=== PATIENT | female | born 1975 | race Caucasian/White ===

== ENCOUNTER 2016-09-17 00:40 | Emergency (ER) | payer OTHER ==
[~2016-09-17] VITALS: Ht 170.1 cm; Wt 108.9 kg
[~2016-09-17 00:40] MED LIST: CORTISPORIN 1%-10 M1 OT; DAYPRO600 M1 PO; VICODIN 500 MG-1 TAB PO; ZITHROMAX Z PA250 MG PO
[2016-09-17 00:49] VITALS: BP 140/98
[2016-09-17 01:15] LABS: BILIRUBIN NEGATIVE (NEGATIVE); BLOOD 1+ (NEGATIVE); CLARITY SL CLOUDY (CLEAR); COLOR YELLOW (YELLOW); GLUCOSE NEGATIVE (NEGATIVE); KETONE NEGATIVE (NEGATIVE); LEUKO ESTERASE NEGATIVE (NEGATIVE); NITRITE NEGATIVE (NEGATIVE); PH 5.5 (5.0-9.0); PROTEIN NEGATIVE (NEGATIVE); UROBILINOGEN 0.2 E.U./dl (0.2-1.0)
[2016-09-17 01:24] LABS: BACTERIA 2+; EPITHELIAL CELLS 15-20; URINE REFLEX COMMENT YES (NO)
[2016-09-17 01:43] LABS: HEMATOCRIT 41.5 % (37.0-47.0); HEMOGLOBIN 13.3 g/dl (12.0-16.0); MEAN CELL VOLUME 86.5 fl (81.0-99.0); MEAN CORPUSCULAR HGB 27.7 pg (27.0-31.0); MEAN PLATELET VOLUME 9.2 fl (9.6-12.3); PLATELET COUNT AUTOMATED 414 10*3/uL (130-400); RED CELL DISTRI WIDTH 15.3 % (0-14.5); WHITE BLOOD COUNT 14.4 10*3/uL (4.8-10.8)
[2016-09-17 02:00] LABS: ALBUMIN 3.5 gm/dl (3.1-4.5); ALKALINE PHOSPHATASE 109 U/L (45-117); BILIRUBIN, TOTAL 0.2 mg/dl (0.2-1.0); BUN 20 mg/dl (7-24); CARBON DIOXIDE 24 mmol/L (21-32); CHLORIDE 106 mmol/L (98-107); EST GLOM FILT AFRICAN AMERICAN > 60 ml/min; GLUCOSE 98 mg/dL (65-99); POTASSIUM 3.6 mmol/L (3.5-5.1); SGOT/AST 27 IU/L (3-35); SGPT/ALT 21 U/L (12-78); SODIUM 141 mmol/L (136-145); TOTAL PROTEIN 7.1 gm/dL (6.4-8.2)
[2016-09-17 02:01] LABS: ATYPICAL LYMPHS 1 % (0-0); BASOPHIL # 0.1 10*3/uL (0-0.1); BASOPHILS 1 % (0-1); EOSINOPHIL # 0.9 10*3/uL (0-0.4); EOSINOPHILS 6 % (1-4); LYMPHOCYTE # 4.6 10*3/uL (1.3-4.4); METAMYELOCYTES 3 % (0-0); MONOCYTE # 0.4 10*3/uL (0.1-1.0); NEUTROPHIL # 7.9 10*3/uL (2.3-7.9); NEUTROPHILS 55 % (47-73); TOTAL CELLS COUNTED 100 #CELLS
[2016-09-17 02:02] LABS: PLATELET SUFFICIENCY HIGH (NORMAL); POLYCHROMASIA SLIGHT
[2016-09-17] MEDS ORDERED: CIPRO500 MG PO (03:00)
[2016-09-17] MEDS ORDERED: HYDROCODONE BIT1 T11 PO (03:00)
[2016-09-18] MEDS ORDERED: 'PARAFON FORTE500 M1 PO (12:20)
[2016-09-18] MEDS ORDERED: NAPROSYN500 MG PO (12:20)
== END 2016-09-17 03:07 | disposition home or self-care (01) ==
LOC: ED 00:40
PROVIDERS: Physician Assistant
DX: N23 Unspecified renal colic (principal); N39.0 Urinary tract infection, site not specified; F17.200 Nicotine dependence, unspecified, uncomplicated; Z88.0 Allergy status to penicillin; Z91.040 Latex allergy status

== ENCOUNTER 2016-09-18 11:22 | Emergency (ER) | payer OTHER ==
[~2016-09-18] VITALS: Ht 170.1 cm; Wt 108.9 kg
[~2016-09-18 11:22] MED LIST changes: +CIPRO500 MG PO; +HYDROCODONE BIT1 T11 PO
[2016-09-18 12:00] VITALS: BP 140/86
[2016-09-18] MEDS ORDERED: NAPROSYN500 MG PO (12:20)
[2016-09-18] MEDS ORDERED: 'PARAFON FORTE500 M1 PO (12:20)
[2016-09-18 12:38] LABS: BILIRUBIN NEGATIVE (NEGATIVE); BLOOD TRACE-INTACT (NEGATIVE); CLARITY CLEAR (CLEAR); COLOR YELLOW (YELLOW); GLUCOSE NEGATIVE (NEGATIVE); KETONE NEGATIVE (NEGATIVE); LEUKO ESTERASE NEGATIVE (NEGATIVE); NITRITE NEGATIVE (NEGATIVE); PROTEIN NEGATIVE (NEGATIVE); UROBILINOGEN 0.2 E.U./dl (0.2-1.0)
[2016-09-18 13:09] LABS: BACTERIA 2+
[2016-09-18 13:10] LABS: MUCOUS 1+; URINE REFLEX COMMENT YES (NO)
== END 2016-09-18 13:34 | disposition home or self-care (01) ==
LOC: ED 11:22
PROVIDERS: Nurse Practitioner Family
DX: S39.012A Strain of muscle, fascia and tendon of lower back, initial encounter (principal); R03.0 Elevated blood-pressure reading, without diagnosis of hypertension; F17.200 Nicotine dependence, unspecified, uncomplicated; Z88.0 Allergy status to penicillin; X58.XXXA Exposure to other specified factors, initial encounter; Y93.9 Activity, unspecified; Y92.9 Unspecified place or not applicable; Y99.9 Unspecified external cause status

== ENCOUNTER 2022-07-02 06:44 | Emergency (ER) | payer OTHER ==
[~2022-07-02] VITALS: Ht 170.1 cm; Wt 99.8 kg
[~2022-07-02 06:44] MED LIST changes: +'PARAFON FORTE500 M1 PO; +NAPROSYN500 MG PO
[2022-07-02 06:52] VITALS: BP 145/85
[2022-07-02] MEDS ORDERED: HYDROCODONE-AC1 EAC1 PO (11:37)
== END 2022-07-02 11:50 | disposition home or self-care (01) ==
LOC: ED 06:44
DX: S22.32XA Fracture of one rib, left side, initial encounter for closed fracture (principal); Z88.0 Allergy status to penicillin; Z98.51 Tubal ligation status; F17.200 Nicotine dependence, unspecified, uncomplicated; W18.39XA Other fall on same level, initial encounter; Y93.89 Activity, other specified; Y92.89 Other specified places as the place of occurrence of the external cause; Y99.8 Other external cause status

== ENCOUNTER 2023-01-18 23:59 | Emergency (ER) | payer OTHER ==
[~2023-01-18 23:59] MED LIST changes: +HYDROCODONE-AC1 EAC1 PO
[2023-01-19 00:20] VITALS: BP 172/110
[2023-01-19] MEDS ORDERED: Percocet 325 MG1 TAB PO (00:46)
== END 2023-01-19 01:23 | disposition home or self-care (01) ==
LOC: ED 23:59
DX: S22.32XA Fracture of one rib, left side, initial encounter for closed fracture (principal); Z88.0 Allergy status to penicillin; Z98.51 Tubal ligation status; Z98.890 Other specified postprocedural states; W19.XXXA Unspecified fall, initial encounter; Y93.89 Activity, other specified; Y92.89 Other specified places as the place of occurrence of the external cause; Y99.8 Other external cause status

== ENCOUNTER 2024-09-23 14:40 | Emergency (ER) | payer SELFPAY ==
[~2024-09-23] VITALS: Ht 170.1 cm; Wt 90.7 kg
[~2024-09-23 14:40] MED LIST changes: +Percocet 325 MG1 TAB PO
[2024-09-23 14:53] VITALS: BP 142/82
[2024-09-23] MEDS ORDERED: VIBRAMYCIN100 MG PO (15:16)
== END 2024-09-23 15:19 | disposition home or self-care (01) ==
LOC: ED 14:40
DX: J01.90 Acute sinusitis, unspecified (principal); Z88.0 Allergy status to penicillin; Z98.51 Tubal ligation status; Z98.890 Other specified postprocedural states